=== PATIENT | female | born 1970 | race Hispanic/Latino ===

== ENCOUNTER 2016-06-12 12:20 | Emergency (ER) | payer SELFPAY ==
[2016-06-12 13:36] VITALS: BP 161/118
[2016-06-12] MEDS ORDERED: NORCO 5/325 PO ONE (14:07)
[2016-06-12] MEDS ORDERED: CLEOCIN IM ONE (14:07)
--- NOTE | 2016-06-12 14:14 | Emergency Department Report ---
<ADDISON KRISHNA - Last Filed: 06/12/16 14:56> ED ENT HPI - General Chief complaint: Dental/Oral Stated complaint: ABCESS Time Seen by Provider: 06/12/16 13:59 Source: patient Mode of arrival: Ambulatory Limitations: No Limitations - History of Present Illness MD complaint: tooth pain -: days(s) (1) Location: other (right side of face) Severity: moderate Quality: sharp Consistency: constant Improves with: none Worsens with: other (palpation) Context- Dental: history of dental caries, poor dental care Associated Symptoms: gum swelling, toothache. denies: fever, cough, pain with swallowing, sore throat, tinnitus, hearing loss, discharge from ear, rhinorrhea - Related Data Previous Rx's Medication Instructions Recorded Last Taken Type Acetaminophen/Codeine [Tylenol 1 tab PO Q4HR PRN #30 tablet 06/12/16 Unknown Rx /Codeine # 3 tab] Amoxicillin 1,000 mg PO BID #40 capsule 06/12/16 Unknown Rx predniSONE [Deltasone] 40 mg PO QDAY 5 Days 06/12/16 Unknown Rx Allergies Allergy/AdvReac Type Severity Reaction Status Date / Time No Known Allergies Allergy Unverified 06/12/16 13:25 ED Dental HPI - General Chief complaint: Dental/Oral Stated complaint: ABCESS Time Seen by Provider: 06/12/16 13:59 Source: patient Mode of arrival: Ambulatory Limitations: No Limitations - Related Data Previous Rx's Medication Instructions Recorded Last Taken Type Acetaminophen/Codeine [Tylenol 1 tab PO Q4HR PRN #30 tablet 06/12/16 Unknown Rx /Codeine # 3 tab] Amoxicillin 1,000 mg PO BID #40 capsule 06/12/16 Unknown Rx predniSONE [Deltasone] 40 mg PO QDAY 5 Days 06/12/16 Unknown Rx Allergies Allergy/AdvReac Type Severity Reaction Status Date / Time No Known Allergies Allergy Unverified 06/12/16 13:25 ED Review of Systems ROS: Stated complaint: ABCESS Other details as noted in HPI Constitutional: denies: chills, fever Eyes: denies: eye pain, eye discharge, vision change ENT: dental pain, congestion. denies: ear pain, throat pain Respiratory: denies: cough, shortness of breath, wheezing Cardiovascular: denies: chest pain, palpitations Endocrine: no symptoms reported Gastrointestinal: denies: abdominal pain, nausea, diarrhea Genitourinary: denies: urgency, dysuria, discharge Musculoskeletal: denies: back pain, joint swelling, arthralgia Skin: denies: rash, lesions Neurological: denies: headache, weakness, paresthesias Psychiatric: denies: anxiety, depression Hematological/Lymphatic: denies: easy bleeding, easy bruising ED Past Medical Hx - Past Medical History Previous Medical History?: No - Surgical History Additional Surgical History: Back, elbow, knee, hysterectomy - Social History Smoking Status: Never Smoker Substance Use Type: None - Medications Home Medications: Home Medications Medication Instructions Recorded Confirmed Last Taken Type Acetaminophen/Codeine [Tylenol 1 tab PO Q4HR PRN #30 tablet 06/12/16 Unknown Rx /Codeine # 3 tab] Amoxicillin 1,000 mg PO BID #40 capsule 06/12/16 Unknown Rx predniSONE [Deltasone] 40 mg PO QDAY 5 Days 06/12/16 Unknown Rx ED Physical Exam - General Limitations: No Limitations General appearance: alert, in no apparent distress, anxious - Head Head exam: Present: atraumatic, normocephalic - Eye Eye exam: Present: normal appearance, PERRL, EOMI. Absent: conjunctival injection, periorbital swelling, periorbital tenderness - ENT ENT exam: Present: mucous membranes moist, TM's normal bilaterally, normal external ear exam, other (right maxillary tenderness and swelling) - Expanded ENT Exam Expanded Mouth exam: Present: tongue normal. Absent: drooling Teeth exam: Present: dental caries, other (diffuse dental decay, no obvious incisable abscess noted) Throat exam: Positive: normal inspection - Neck Neck exam: Present: normal inspection, full ROM. Absent: tenderness, lymphadenopathy - Respiratory Respiratory exam: Present: normal lung sounds bilaterally. Absent: respiratory distress - Cardiovascular Cardiovascular Exam: Present: regular rate, normal rhythm. Absent: systolic murmur, diastolic murmur, rubs, gallop - GI/Abdominal GI/Abdominal exam: Present: soft, normal bowel sounds. Absent: tenderness - Extremities Exam Extremities exam: Present: normal inspection - Back Exam Back exam: Present: normal inspection - Neurological Exam Neurological exam: Present: alert, oriented X3 - Psychiatric Psychiatric exam: Present: normal affect, normal mood, anxious - Skin Skin exam: Present: warm, dry, intact, normal color. Absent: rash ED Course Vital Signs 06/12/16 13:26 Temperature 98.1 F Pulse Rate 87 Respiratory 20 Rate Blood Pressure 161/118 O2 Sat by Pulse 99 Oximetry ED Medical Decision Making - Medical Decision Making patient is non-toxic and hemodynamically stable. She has obvious facial cellulitis most likely due to poor dental care. She was given IM Cleocin in ER today and will continue Abx on outpatient with dental follow-up. Critical care attestation.: If time is entered above; I have spent that time in minutes in the direct care of this critically ill patient, excluding procedure time. ED Disposition Disposition: DISCHARGED TO HOME OR SELFCARE Is pt being admited?: No Does the pt Need Aspirin: No Condition: Good Instructions: Dental Abscess (ED), Cellulitis (ED) Prescriptions: Acetaminophen/Codeine [Tylenol /Codeine # 3 tab] 1 tab PO Q4HR PRN #30 tablet PRN Reason: Pain Amoxicillin 1,000 mg PO BID #40 capsule predniSONE [Deltasone] 40 mg PO QDAY 5 Days Referrals: [facility] [Outside] - 3-5 Days Time of Disposition: 14:58 <BRANDEN KRAMER - Last Filed: 06/12/16 15:44> ED Course - Reevaluation(s) Reevaluation #1: PA instructed to discontinue steroids. Patient needs close follow-up. Patient will be informed. Patient also informed concerning hypertension. Close primary care follow-up is required. If they have not left he will be given a prescription for an antihypertensive agent. 06/12/16 15:42 06/12/16 15:43
[2016-06-12] MEDS ORDERED: MORPHINE IM ONE (15:03)
== END 2016-06-12 16:08 | disposition home or self-care (01) ==
LOC: ED 12:20
DX: K02.9 Dental caries, unspecified (principal); Z90.710 Acquired absence of both cervix and uterus
CPT/HCPCS: 96372; 99282; J2270

== ENCOUNTER 2016-06-12 17:05 | Emergency (ER) | payer SELFPAY ==
[2016-06-12 17:15] VITALS: BP 107/76
--- NOTE | 2016-06-12 18:46 | Emergency Department Report ---
Chief Complaint: Weakness Stated Complaint: WEAKNESS Time Seen by Provider: 06/12/16 18:40 - HPI History of Present Illness: patient checks back in with complaints of feeling light headed and weak. Patient was just seen in the ER and discharged after getting Clindamyacin IM injection as well as Morphine injection. She was waiting in waiting room for her ride when she got light headed. - ROS Review of Systems: Weak, Light headed, pale - Exam Vital Signs: Vital Signs 06/12/16 17:09 Temperature 98.7 F Pulse Rate 90 Respiratory 17 Rate Blood Pressure 107/76 O2 Sat by Pulse 96 Oximetry Physical Exam: patient initially appears pale and was given juice and crackers as she has not eaten much of anything due to teeth pain today. After sitting up and eating and drinking, she began to feel better and her color improved MSE screening note: Focused history and physical exam performed. Patient was observed in the ER and symtptomatic improvements with oral fluids and crackers. Patient wants to go home and go to bed. ED Disposition for MSE Condition: Stable
--- NOTE | 2016-06-16 18:56 | ED Elopement Review ---
ED Pt Elopement review - Call Back decision Pt Call Back Decision: Pt to F/U with PMD
== END 2016-06-12 19:00 | disposition left against medical advice (07) ==
LOC: ED 17:05
DX: R53.1 Weakness (principal); R42 Dizziness and giddiness; Z53.21 Procedure and treatment not carried out due to patient leaving prior to being seen by health care provider

== ENCOUNTER 2016-06-19 18:57 | Inpatient (IN) | payer SELFPAY ==
[2016-06-19 19:39] LABS: Basophils % (Auto) 0.3 % (0.0-1.8); Eosinophils % (Auto) 3.7 % (0.0-4.3); Hemoglobin 11.5 gm/dl (10.1-14.3); Mean Corpuscular HGB Conc 34 % (30-34); Mean Corpuscular Hemoglobin 28 pg (28-32); Mean Corpuscular Volume 84 fl (79-97); Platelet Count 416 K/mm3 (140-440); Red Blood Count 4.05 M/mm3 (3.65-5.03); Red Cell Distribution Width 14.1 % (13.2-15.2); White Blood Count 7.7 K/mm3 (4.5-11.0)
[2016-06-19 19:48] LABS: Anion Gap 20 mmol/L; Blood Urea Nitrogen 7 mg/dL (7-17); Calcium 9.2 mg/dL (8.4-10.2); Carbon Dioxide 22 mmol/L (22-30); Chloride 103.1 mmol/L (98-107); Glucose 98 mg/dL (65-100); Potassium 3.7 mmol/L (3.6-5.0); Sodium 141 mmol/L (137-145)
[2016-06-19] MEDS ORDERED: MORPHINE IV ONE (23:52)
[2016-06-19] MEDS ORDERED: ZOFRAN IV ONE (23:52)
--- NOTE | 2016-06-20 00:02 | Emergency Department Report ---
HPI - General Chief Complaint: Chest Pain Time Seen by Provider: 06/19/16 23:44 - HPI HPI: Room 10 The patient is a 46-year-old female presenting with a chief complaint of headache and chest pain. The patient states at approximate 16:00 today while at rest she developed left-sided chest pain associated with shortness of breath diaphoresis and nausea without vomiting. Patient states the pain has been dull and constant in nature. The patient says she is also had a headache for the past 2 days but worsened this morning. Patient currently gives her pain a score of 10/10. Patient states she's never had a stress test or cardiac catheterization has a strong family history of coronary artery disease Location: Chest, head Duration: [see above] Quality: Dull Severity:10/10 Modifying factors: [see above] Context: [see above] Mode of transportation: [not driving] ED Past Medical Hx - Surgical History Additional Surgical History: Back, elbow, knee, hysterectomy. back surg 3times - Family History Family history: CAD/NH - Social History Smoking Status: Never Smoker Substance Use Type: None (denies illicit drug use) - Medications Home Medications: Home Medications Medication Instructions Recorded Confirmed Last Taken Type HYDROcodone/APAP 5-325 [[place] 1 each PO Q4HR PRN #18 tablet 06/12/16 Unknown Rx 5/325] Penicillin Vk [Veetids TAB] 500 mg PO QID #40 tablet 06/12/16 Unknown Rx ED Review of Systems ROS: Stated complaint: CHEST PAIN /HEADACHE/BACK PAIN Other details as noted in HPI Comment: All other systems reviewed and negative Constitutional: diaphoresis Eyes: denies: eye pain, eye discharge, vision change ENT: denies: ear pain, throat pain Respiratory: shortness of breath Cardiovascular: chest pain Endocrine: no symptoms reported Gastrointestinal: nausea. denies: vomiting Genitourinary: denies: urgency, dysuria, discharge Musculoskeletal: denies: back pain, joint swelling, arthralgia Skin: denies: rash, lesions Neurological: headache. denies: weakness, paresthesias Psychiatric: denies: anxiety, depression Hematological/Lymphatic: denies: easy bleeding, easy bruising Physical Exam - Physical Exam Vital Signs: Vital Signs 06/19/16 06/19/16 19:09 23:20 Temperature 98.3 F Pulse Rate 91 H 87 Respiratory 18 18 Rate Blood Pressure 139/101 Blood Pressure 137/78 [Left] O2 Sat by Pulse 100 96 Oximetry Physical Exam: GENERAL: The patient is well-developed well-nourished female lying on stretcher appearing to be in moderate discomfort. [] HEENT: Normocephalic. Atraumatic. Extraocular motions are intact. Patient has moist mucous membranes. NECK: Supple. No meningitic signs are noted. Trachea midline CHEST/LUNGS: Clear to auscultation. There is no respiratory distress noted. HEART/CARDIOVASCULAR: Regular. There is no tachycardia. There is no gallop rub or murmur. ABDOMEN: Abdomen is soft, nontender. Patient has normal bowel sounds. There is no abdominal distention. SKIN: There is no rash. There is no edema. There is no diaphoresis. NEURO: The patient is awake, alert, and oriented. The patient is cooperative. The patient has no focal neurologic deficits. The patient has normal speech. Cranial nerves II through XII grossly intact, no drift MUSCULOSKELETAL: There is no evidence of acute injury. ED Course Vital Signs 06/19/16 06/19/16 19:09 23:20 Temperature 98.3 F Pulse Rate 91 H 87 Respiratory 18 18 Rate Blood Pressure 139/101 Blood Pressure 137/78 [Left] O2 Sat by Pulse 100 96 Oximetry - Reevaluation(s) Reevaluation #1: 06/20/16 02:25 Left external jugular IV placed by myself. 20-gauge ED Medical Decision Making - Lab Data Result diagrams: 06/19/16 19:18 06/19/16 19:18 Laboratory Tests 06/19/16 06/19/16 06/19/16 19:18 19:18 22:06 WBC 7.7 RBC 4.05 Hgb 11.5 Hct 34.0 MCV 84 MCH 28 MCHC 34 RDW 14.1 Plt Count 416 Lymph % (Auto) 34.6 [place] % (Auto) 5.5 Eos % (Auto) 3.7 Baso % (Auto) 0.3 Lymph # 2.7 [place] # 0.4 Eos # 0.3 Baso # 0.0 Seg Neutrophils % 55.9 Seg Neutrophils # 4.3 Sodium 141 Potassium 3.7 Chloride 103.1 Carbon Dioxide 22 Anion Gap 20 BUN 7 Creatinine 0.5 L Estimated GFR > 60 BUN/Creatinine Ratio 14.00 Glucose 98 Calcium 9.2 Troponin T < 0.010 < 0.010 - EKG Data -: EKG Interpreted by Me EKG shows normal: sinus rhythm Rate: normal - EKG Data When compared to previous EKG there are: previous EKG unavailable Interpretation: other (no ischemic changes seen) - Radiology Data Radiology results: report reviewed (CT head), image reviewed (CT head, CT chest) CT head (read by radiologist)-negative CT scan of head. No acute intracranial findings CT chest read pending - Differential Diagnosis ACS, pericarditis, aortic dissection, ICH, migraine Critical care attestation.: If time is entered above; I have spent that time in minutes in the direct care of this critically ill patient, excluding procedure time. ED Disposition Clinical Impression: Chest pain, Headache Disposition: OP ADMITTED IP TO THIS HOSP Is pt being admited?: Yes Does the pt Need Aspirin: Yes Condition: Fair Instructions: Chest Pain (ED) Referrals: PRIMARY CARE, [Primary Care Provider] - 3-5 Days Time of Disposition: 04:53 (case discussed with Dr. Middleton. CT chest read pending )
[2016-06-20] MEDS ORDERED: NACL ONE (00:12)
--- NOTE | 2016-06-20 02:05 | Cat Scan Report ---
FINAL REPORT EXAM: CT HEAD/BRAIN WO CON HISTORY: headache TECHNIQUE: Standard unenhanced CT of the head at 5.0 millimeter axial increments. PRIORS: None. FINDINGS: The ventricular system is normal in size and configuration. There is no evidence for parenchymal volume loss. There is no evidence for mass lesion, mass effect, midline shift, acute intracranial hemorrhage, or acute ischemia/ infarction. No evidence for acute skull fracture is seen. No abnormality in the overlying scalp soft tissues is seen. Visualized paranasal sinuses are clear. IMPRESSION: Negative CT of the head. No acute intracranial process noted.
[2016-06-20] MEDS ORDERED: MORPHINE IV ONE (02:24)
[2016-06-20] MEDS ORDERED: FIORICET PO ONE (02:25)
[2016-06-20] MEDS ORDERED: ASPIRIN PO ONE (04:54)
--- NOTE | 2016-06-20 05:21 | Cat Scan Report ---
FINAL REPORT EXAM: CT ANGIO CHEST HISTORY: chest pain radiating to the back TECHNIQUE: CT angiography of the chest was performed. 100 cc Omnipaque 350 IV was administered. Coronal and sagittal reformatted images were obtained. PRIORS: None. FINDINGS: There is no aortic dissection seen. There are no filling defects seen within the pulmonary arterial circulation to suggest pulmonary embolism. There is no significant mediastinal or hilar mass seen. There is some dependent atelectasis at the lung bases. The lungs are clear. There is no pneumothorax seen. There are no pleural effusions seen. IMPRESSION: There is no pulmonary embolism or aortic dissection seen.
--- NOTE | 2016-06-20 05:53 | Event Note ---
Date: 06/20/16 See /p in reports Chest pain r/o PA protocol Headache HTN
[2016-06-20] MEDS ORDERED: ZOFRAN IV PRN ×2 (05:55→06:01)
[2016-06-20] MEDS: MORPHINE IV PRN ×4 (05:58→21:34)
[2016-06-20] MEDS ORDERED: PERCOCET 5/325 PO PRN (06:01)
[2016-06-20] MEDS ORDERED: DULCOLAX PR PRN (06:01)
[2016-06-20] MEDS ORDERED: MILK OF MAGNESIA PO PRN (06:01)
[2016-06-20] MEDS ORDERED: SODIUM CHLORIDE FLUSH SYRINGE 10 ML IV PRN (06:03)
[2016-06-20] MEDS ORDERED: FIORICET PO PRN (06:21)
[2016-06-20 07:28] LABS: Creatine Kinase 29 units/L (30-135)
[2016-06-20 07:34] LABS: Creatine Kinase MB < 1.0 ng/mL (0.0-4.0)
--- NOTE | 2016-06-20 08:12 | History and Physical Report ---
CHIEF COMPLAINT: Left-sided chest pain. HISTORY OF PRESENT ILLNESS: A 46-year-old female with no significant past medical history comes in for severe headache of 1 day duration and left-sided chest pain radiating to the back. The patient developed chest pain around 16 hours yesterday while at rest. It is associated with some shortness of breath, diaphoresis, and also nausea. No vomiting. The patient also developed headache, which is 10/10. The patient was recently in the Emergency Room for toothache one week ago. She states the pain is about 10/10 and never had a stress test or cardiac catheterization , but had a strong family history of coronary artery disease. No exacerbating factor. No relieving factors. Chest pain is sharp in nature. PAST MEDICAL HISTORY: No hypertension. No diabetes. PAST SURGICAL HISTORY: Back surgery 3 times, hysterectomy, knee surgery, elbow surgery, and back surgery. FAMILY HISTORY: Significant for coronary artery disease. SOCIAL HISTORY: Does not smoke. No alcohol. No recreational drugs. REVIEW OF SYSTEMS: CONSTITUTIONAL: No weight loss or weight gain. No fever. No chills. HEENT: No sore throat. No postnasal drip. CARDIOVASCULAR: As mentioned in the history of present illness sharp left-sided chest pain radiating into the back associated with nausea, diaphoresis, and shortness of breath. RESPIRATORY: No cough. No wheezing. GI: No nausea present. No vomiting. No abdominal pain. GENITOURINARY SYSTEM: No dysuria. No flank pain. MUSCULOSKELETAL SYSTEM: No joint pains and some low back pain. SKIN: No rashes. NEUROLOGICAL: No headaches present. No syncope. No seizures. PSYCHIATRIC: Denies anxiety or depression. No homicidal or suicidal tendencies. HEMATOLOGIC AND LYMPHATIC SYSTEMS: Denies easy bleeding or easy bruising. A 14-point review of systems is done. PHYSICAL EXAMINATION: GENERAL: Middle-aged female in slight distress secondary to headache. VITAL SIGNS: Temperature 98.3, pulse is 91, respiratory rate is 18, blood pressure is 139/101 and repeat blood pressure is 137/78, and sats 100%. HEENT: Unremarkable. Pupils equal and reactive. NECK: Supple. No lymphadenopathy. No thyromegaly. No carotid bruit. LUNGS: Clear to auscultation and percussion. No respiratory distress. CARDIOVASCULAR: S1 and S2 heard. No gallop. No murmur. No rub. Apical impulse in left fifth intercostal space and midclavicular line. ABDOMEN: Soft and benign. No hepatosplenomegaly. No guarding. No rigidity. Hernial orifices are normal. SKIN: No rashes. CENTRAL NERVOUS SYSTEM: Normal. No focal deficits. Cranial nerves are intact. MUSCULOSKELETAL SYSTEMS: No evidence of acute injury. DIAGNOSTIC DATA: EKG shows normal sinus rhythm, possible left atrial enlargement, and right ventricular conduction delay. No acute ST-T wave changes. CT angiogram was negative. LABORATORY DATA: Significant for white count of 7700, hemoglobin of 11.5, hematocrit 34.0, and platelet count 416,000. Electrolytes are normal. Cardiac enzymes are negative. ASSESSMENT AND PLAN: 1. Chest pain and rule out myocardial infarction. Serial cardiac enzymes and Lexiscan in the morning today if possible. The patient was admitted on 5 a.m. 2. Hypertension, borderline. One set of blood pressure reading was high and one set was normal. We will continue to monitor blood pressure and add antihypertensives if necessary. Headaches symptomatic treatment. No bleed. 3. Deep venous thrombosis prophylaxis. Lovenox 40 mg subcutaneous daily. JOB# [id number] VSM/NTS
[2016-06-20] MEDS: TYLENOL PO PRN (08:31)
[2016-06-20] MEDS ORDERED: LEXISCAN IV ONE (09:08)
--- NOTE | 2016-06-20 09:22 | Admit Criteria Form ---
Admission Criteria Documentation: CARDIOLOGY GRG Clinical Indications for Admission to Inpatient Care ( Place 'X' for any and all applicable criteria): Hospital admission is needed for appropriate care of the patient because of ANY ONE of the following (1): [ ] I. Hemodynamic instability as indicated by ALL of the following (1)(2)(3) (4)(5) [ ]a) Vital signs or other findings not as expected for chronic patient condition or baseline [ ]b) Instability indicated by ANY ONE of the following: [ ]i) Hypotension [ ]ii) Symptomatic Tachycardia unresponsive to treatment ( e.g., analgesia, fluids, sedation as indicated) [ ]iii) Inadequate perfusion indicated by ANY ONE of the following: [ ] 1) Lactic acidosis (> 2 mmol/L) [ ] 2) New abnormal capillary refill (> 3 seconds) [ ] 3) Reduced urine output [ ] 4) New altered mental status [ ]iv) Orthostatic vital sign changes unresponsive to treatment (e.g., fluids) [ ]v) IV inotropic or vasopressor medication required to maintain adequate blood pressure or perfusion [ ] II. Severe heart failure as indicated by ANY ONE of the following(17)(18) [ ]a) Respiratory distress [ ]b) Hypotension [ ]c) Anasarca (refractory to outpatient therapy) [ ]d) Cardiac arrhythmias of immediate concern [ ]e) Myocardial ischemia [ ] III. Cardiac arrhythmias or findings of immediate concern indicated by ANY ONE of the following (19)(20): [ ] a) Heart rhythms that are inherently dangerous or unstable indicated by ANY ONE of the following (21)(22)(23): [ ] i) Resuscitated ventricular fibrillation or cardiac arrest [ ] ii) Ventricular escape rhythm [ ] iii) Sustained ventricular tachycardia (30 seconds or more of ventricular rhythm at greater than 100 beats per minute) [ ] iv) Nonsustained ventricular tachycardia and ANY ONE of the following: [ ] 1) Suspected cardiac ischemia as cause or consequence of ventricular tachycardia [ ] 2) In setting of acute myocarditis [ ] b) Unstable cardiac conduction defects indicated by ANY ONE of the following(23)(24)(25) [ ] i) Type II second-degree atrioventricular block [ ]ii) Third-degree atrioventricular block [ ]iii) New-onset left bundle branch block with suspected myocardial ischemia [ ]c) Any heart rhythm and ANY ONE of the following (21)(22)(26)(27) (28) [ ] i) Continuous long-term ECG monitoring needed (e.g., initiation of drug requiring monitoring for more than 24 hours) [ ] ii) Patient has automatic implanted cardioverter defibrillator that is repeatedly firing, malfunctioning, or in need of immediate adjustment of settings beyond the scope of ambulatory or observation care [ ]d) Heart rhythms of concern due to ANY ONE of the following: [ ] i) Hypotension [ ] ii) Respiratory distress [ ] iii) Association with other significant symptoms (e.g., bradycardia with syncope or ongoing dizziness, supraventricular tachycardia with chest pain (14)(15)(17) [ ] IV. Monitoring for cardiac contusion beyond the scope of observation care needed [A](30)(31)(32) [ ] V. Surgical or device complication (e.g., valve replacement complication , pacemaker dysfunction) (35)(41)(44)(45)(46) [ ] . Inpatient palliative care needed. [B](49) Also use Inpatient Palliative Care Criteria [ ] VII. Nonbacterial thrombotic (marantic) endocarditis (36)(43)(47)(48) [X] VIII. Cardiology condition, symptom, or finding for which emergency and observation care has failed or are not considered appropriate. [ ] IX. Acute valvular disease requiring inpatient as indicated by ANY ONE of the following (41) [ ]a) Acute valvular regurgitation (42) [ ]b) Noninfectious valvulitis (43) [ ]c) Obstructive valve thrombosis [ ]d) Paravalvular leak [ ]e) Other significant valvular disorder remaining after emergency or observation level of care (as appropriate) [ ]X. Pericardial disease requiring inpatient treatment as indicated by ANY ONE of the following (33)(34)(35)(36)(37) [ ]a) Suspected tamponade (38)(39)(40) [ ]b) Hemopericardium [ ]c) Other significant pericardial disorder remaining after emergency or observation level of care (as appropriate) [ ] XI. Cardiac ischemia beyond scope of emergency and observation care. [ ] XII. Hypertension requiring inpatient treatment as indicated by ANY ONE of the following (6)(7)(8) [ ]a) SBP greater than 220 mm Hg or DBP greater than 120 mmHg despite treatment [ ]b) SBP greater than 140 mm Hg or DBP greater than 100 mm Hg with evidence of acute end organ damage as indicated by ANY ONE of the following [ ] i) Altered mental status [ ] ii) Acute renal failure as indicated by new onset of ANY ONE of the following (9)(10)(11)(12)(13) [ ]1) 3-fold rise in serum creatinine from baseline [ ]2) Serum creatinine greater than 4 mg/dL ( 354 micromoles/L) with acute rise greater than 0.5 mg/dL (44.2 micromoles/L) [ ]3) Reduction of more than 75% in estimated glomerular filtration rate from baseline [ ]4) Estimated glomerular filtration rate less than 35 mL/min/1.73m2 (0.59 mL/sec/1.73m2) in child up to 18 years of age [ ]5) Cessation of urine output indicated by ALL of the following [ ]A. Adequate volume status [ ]B. Inadequate urine output as indicated by ANY ONE of the following [ ]a. Urine output less than 0.3 mL/kg/hr for 24 hours [ ]b. Anuria (urine output less than 0.1 mL/kg/hr) for 12 hours [ ] iii) Aortic dissection [ ] iv) Myocardial Ischemia [ ] v) Left ventricular heart failure [ ]vi) Retinal Hemorrhage [ ]vii) Other significant finding [ ]c) Hypertension in child requiring inpatient treatment as indicated by ALL of the following(14)(15)(16) [ ] i) Outpatient treatment not effective, not available, or not appropriate [ ]ii) SBP or DBP greater than 95th percentile for age [ ]iii) Evidence of acute end organ damage as indicated by ANY ONE of the following [ ]1) Altered mental status [ ]2) Acute renal failure as indicated by new onset of ANY ONE of the following(9)(10)(11)(12)(13) [ ]A. 3-fold rise in serum creatinine from baseline [ ]B. Serum creatinine greater than 4 mg/dL (354 micromoles/L) with acute rise greater than 0.5 mg/dL (44.2 micromoles/L) [ ]C. Reduction of more than 75% in estimated glomerular filtration rate from baseline [ ]D. Estimated glomerular filtration rate less than 35 mL/min/1.73m2 (0.59 mL/sec/1.73m2) in child up to 18 years of age [ ]E. Cessation of urine output indicated by ALL of the following [ ]a. Adequate volume status [ ]b. Inadequate urine output as indicated by ANY ONE of the following [ ]i) Urine output less than 0.3 mL/kg/hr for 24 hours [ ]ii) Anuria ( urine output less than 0.1 mL/kg/hr) for 12 hours [ ]3) Severe headache [ ]4) Visual disturbance [ ]5) Retinal hemorrhage [ ]6) Other significant finding [ ]XIII. Complications of transplanted heart indicated by ANY ONE of the following(61): [ ]a) Acute graft rejection requiring inpatient management (eg, intravenous immunosuppression)(62)(63) [ ]b) Acute graft heart failure indicated by ANY ONE of the following(64): [ ]i) Hemodynamic instability [ ]ii) Cardiac arrhythmias of immediate concern [ ]iii) Pulmonary edema that is very severe (eg, mechanical ventilation needed, imminent or likely, need for 100% oxygen to keep oxygen saturation above 90%) [ ]iv) Pulmonary edema that is persistent as indicated by ALL of the following: [ ]1) New need for oxygen therapy to keep oxygen saturation above 90% (or increased FiO2 need from baseline) [ ]2) Has not improved sufficiently with emergency department or observation care IV diuretics or other heart failure treatments[E] [ ]v) Altered mental status that is severe or persistent [ ]vi) Increased creatinine (new on laboratory test) with reduction of more than 50% in estimated glomerular filtration rate from baseline [ ]vii) Progressively (ongoing) rising creatinine (known from past laboratory test) with reduction of more than 25% in estimated glomerular filtration rate from baseline [ ]viii) Acute renal failure [ ]ix) Acute peripheral ischemia (eg, examination shows pulseless, cool, mottled, or cyanotic extremity) [ ]x) Pulmonary artery catheter monitoring needed [ ]xi) Other sign or symptom of heart failure requiring inpatient treatment (ie, too severe or not responsive to outpatient and observation care treatment) [ ]c) Infection requiring inpatient management (eg, Hemodynamic instability, need for intravenous antimicrobial treatment)(66)(67)(68)(69)(70) [ ]d) Cardiac allograft vasculopathy requiring inpatient management ( eg evidence of cardiac ischemia)(71) [ ]e) Other complication of transplanted heart (eg, stroke, severe pulmonary hypertension, severe valvular dysfunction) requiring inpatient management(72) The original [facility] [employer] content created by [employer] has been revised. The portions of the content which have been revised are identified through the use of italic text or in bold, and [facility] has neither reviewed nor approved the modified material. All other unmodified content is copyright [facility] [employer]. Please see references footnoted in the original [facility] [employer] edition 2016 Admission Criteria Met: Yes
--- NOTE | 2016-06-20 09:53 | Discharge Summary ---
Providers - Providers Date of Admission: 06/20/16 04:54 Attending physician: CAIO HERNANDEZ MD 06/20/16 Consult to Cardiac Rehabilitation [CONS] Routine Reason For Exam: Phase I Primary care physician: MUSTAPHA VILLALPANDO MD Hospitalization Condition: Fair Hospital course: 46-year-old woman who presented with left-sided chest pain and headaches. ACS was rule out by negative cardiac enzymes, She was seen in the emergency department she went on to have a CT scan to come of her chest that was negative for pulmonary embolism, she also had a CT of her head that was within normal limits. She was found to have mild to moderately elevated blood pressures, she went on to have a nuclear stress test and results were . She was put on appropriate medications for hypertension and advised to take over-the- counter medicines such as Tylenol or NSAIDs as needed for headache. Discharge diagnoses 1. Chest pain Due to costochondritis 2. Accelerated hypertension 3. Headaches Disposition: DISCHARGED TO HOME OR SELFCARE Time spent for discharge: 35 minutes Core Measure Documentation - Palliative Care Palliative Care/ Comfort Measures: Not Applicable - Core Measures Any of the following diagnoses?: none Exam - Constitutional Vitals: Temp Pulse Resp BP Pulse Ox 98.3 F 74 18 147/88 97 06/19/16 19:09 06/20/16 05:20 06/20/16 03:19 06/20/16 03:19 06/20/16 03:19 General appearance: Present: no acute distress, well-nourished - EENT Eyes: Present: PERRL ENT: hearing intact, clear oral mucosa - Neck Neck: Present: supple, normal ROM - Respiratory Respiratory effort: normal Respiratory: bilateral: CTA - Cardiovascular Heart Sounds: Present: S1 & S2. Absent: rub, click - Extremities Extremities: pulses symmetrical, No edema Peripheral Pulses: within normal limits - Abdominal General gastrointestinal: Present: soft, non-tender, non-distended, normal bowel sounds Female genitourinary: Present: normal - Integumentary Integumentary: Present: clear, warm, dry - Musculoskeletal Musculoskeletal: gait normal, strength equal bilaterally - Psychiatric Psychiatric: appropriate mood/affect, intact judgment & insight - Neurologic Neurologic: CNII-XII intact, moves all extremities Plan Follow up with: PRIMARY CARE, [Primary Care Provider] - 3-5 Days Prescriptions: Aspirin EC [Aspirin Enteric Coated TAB] 81 mg PO QDAY #30 tablet.[address] Bryant/Acetnicole/Caff 50-325-40 [Fioricet] 1 tab PO Q4H PRN #30 tablet PRN Reason: Headache Hydrochlorothiazide [Hctz] 12.5 mg PO QDAY #30 capsule
[2016-06-20 11:10] LABS: Creatine Kinase 31 units/L (30-135)
[2016-06-20 11:11] LABS: Creatine Kinase MB < 1.0 ng/mL (0.0-4.0)
[2016-06-20] MEDS ORDERED: MOTRIN PO PRN (13:00)
[2016-06-21] MEDS: TYLENOL PO PRN ×2 (00:31→05:28)
[2016-06-21] MEDS: MORPHINE IV PRN (00:32)
[2016-06-21] MEDS ORDERED: LEXISCAN IV ONE (08:23)
--- NOTE | 2016-06-21 08:32 | Discharge Summary ---
Providers - Providers Date of Admission: 06/20/16 04:54 Date of discharge: 06/21/16 Attending physician: GAVIN HELTON 06/20/16 Consult to Cardiac Rehabilitation [CONS] Routine Reason For Exam: Phase I Primary care physician: LABOR/EXCAVATOR Hospitalization Condition: Fair Hospital course: This is a 46-year-old female with a history of depression presented with retrosternal chest pain. She was monitored with serial cardiac enzymes and EKG. She was evaluated by stress test which was negative. She was discharged home with a trial of PPI therapy for possible GERD. Discharge diagnosis and management: Chest pain, stress test was negative - likely due to GERD - d/c with PPI HTN, benign - cont to control with diet and exercise History of depression - Continue home meds and follow-up with psychiatric outpatient Headache likely tension headache - CT head was unremarkable -We'll control with fioricet Disposition: DISCHARGED TO HOME OR SELFCARE Time spent for discharge: 32 minutes Core Measure Documentation - Palliative Care Palliative Care/ Comfort Measures: Not Applicable - Core Measures Any of the following diagnoses?: none Exam - Constitutional Vitals: Temp Pulse Resp BP Pulse Ox 97.7 F 64 18 110/60 97 06/21/16 07:03 06/21/16 07:03 06/21/16 05:28 06/21/16 07:03 06/21/16 07:03 General appearance: Present: no acute distress, well-nourished - EENT Eyes: Present: PERRL ENT: hearing intact, clear oral mucosa - Neck Neck: Present: supple, normal ROM - Respiratory Respiratory effort: normal Respiratory: bilateral: CTA - Cardiovascular Heart Sounds: Present: S1 & S2. Absent: rub, click - Extremities Extremities: pulses symmetrical, No edema Peripheral Pulses: within normal limits - Abdominal General gastrointestinal: Present: soft, non-tender, non-distended, normal bowel sounds - Integumentary Integumentary: Present: clear, warm, dry - Musculoskeletal Musculoskeletal: gait normal, strength equal bilaterally - Psychiatric Psychiatric: appropriate mood/affect, intact judgment & insight - Neurologic Neurologic: CNII-XII intact, moves all extremities Plan Activity: advance as tolerated Weight Bearing Status: Weight Bear as Tolerated Diet: low fat, low salt Follow up with: [facility] [Provider Group] - 7 Days PRIMARY CARE, [Primary Care Provider] - 3-5 Days Prescriptions: Aspirin EC [Aspirin Enteric Coated TAB] 81 mg PO QDAY #30 tablet.[address] Bryant/Acetamin/Caff 50-325-40 [Fioricet] 1 tab PO Q4H PRN #30 tablet PRN Reason: Headache Pantoprazole [Protonix TAB] 20 mg PO QDAY #30 tablet.
[2016-06-21] MEDS ORDERED: FIORICET PO PRN (12:00)
[2016-06-21] MEDS ORDERED: FLUARIX QUAD 2016-2017(36 MOS+) IM ONE (12:00)
[2016-06-21 13:01] VITALS: BP 131/87
--- NOTE | 2016-06-22 03:28 | Treadmill Report ---
THALLIUM MYOVIEW Resting images revealed homogeneous radioisotope activity. On Myoview after dose of Lexiscan, again there was homogeneous radioisotope activity noted. Ejection fraction was normal at 69%. There is no transient ischemic dilatation. IMPRESSION: Normal perfusion test. JOB# [id number] NELLIE/JACKIE
== END 2016-06-21 17:10 | disposition home or self-care (01) | DRG 392 ==
LOC: ED 18:57 → 4A 06-20 04:54
PROVIDERS: ADMIT Internal Medicine; ATTEND Internal Medicine
PROC: 4A02XM4 Measurement of Cardiac Total Activity, External Approach (ICD-10-PCS; principal; 2016-06-20)
DX: K21.9 Gastro-esophageal reflux disease without esophagitis (principal); R07.9 Chest pain, unspecified; I10 Essential (primary) hypertension; F32.9 Major depressive disorder, single episode, unspecified; G44.209 Tension-type headache, unspecified, not intractable; Z98.890 Other specified postprocedural states; Z90.710 Acquired absence of both cervix and uterus; Z82.49 Family history of ischemic heart disease and other diseases of the circulatory system
CPT/HCPCS: 36415; 70450; 71275; 78452; 80048; 82550; 82553; 84484; 85025; 90686; 93005; 93010; 93017; 96374; 96375; A9502; J2270; J2405; J2785; Q9967

== ENCOUNTER 2016-09-22 18:38 | Emergency (ER) | payer SELFPAY ==
[2016-09-22 20:16] LABS: Basophils % (Auto) 0.3 % (0.0-1.8); Eosinophils % (Auto) 3.3 % (0.0-4.3); Hematocrit 33.7 % (30.3-42.9); Hemoglobin 11.3 gm/dl (10.1-14.3); Mean Corpuscular HGB Conc 34 % (30-34); Mean Corpuscular Hemoglobin 30 pg (28-32); Mean Corpuscular Volume 90 fl (79-97); Platelet Count 307 K/mm3 (140-440); Red Blood Count 3.73 M/mm3 (3.65-5.03); Red Cell Distribution Width 12.4 % (13.2-15.2)
[2016-09-22 20:26] LABS: Bilirubin,Urine NEG (Negative); Blood,Urine NEG (Negative); Ketones,Urine NEG (Negative); Leukocyte Esterase,Urine NEG (Negative); Nitrite,Urine NEG (Negative); Protein,Urine <15 mg/dL mg/dL (Negative); RBC,Urine < 1.0 /HPF (0.0-6.0); Urobilinogen,Urine < 2.0 mg/dL (<2.0)
[2016-09-22 20:27] LABS: WBC,Urine < 1.0 /HPF (0.0-6.0)
[2016-09-22 20:33] LABS: Anion Gap 17 mmol/L; BUN/Creatinine Ratio 6.66; Blood Urea Nitrogen 4 mg/dL (7-17); Calcium 8.8 mg/dL (8.4-10.2); Carbon Dioxide 27 mmol/L (22-30); Chloride 103.1 mmol/L (98-107); Glucose 82 mg/dL (65-100); Potassium 3.8 mmol/L (3.6-5.0); Sodium 143 mmol/L (137-145)
--- NOTE | 2016-09-22 20:40 | Cat Scan Report ---
FINAL REPORT EXAM: CT CERVICAL SPINE WO CON HISTORY: fall, Bowel control Dizzy issues TECHNIQUE: Standard CT cervical spine obtained at 1.25 millimeter axial increments only. PRIORS: None. FINDINGS: The vertebral bodies are intact. There is no evidence for acute fracture. There is no evidence for paravertebral soft tissue swelling. Alignment is maintained. Extensive facet joint hypertrophic changes present from C3 through C6 bilaterally IMPRESSION: No acute abnormality of the cervical spine. Bilateral facet joint hypertrophic change identified from C3 through C6.
--- NOTE | 2016-09-22 20:46 | Cat Scan Report ---
FINAL REPORT EXAM: CT LUMBAR SPINE WO CON HISTORY: fall, Bowel control Dizzy issues TECHNIQUE: Spiral high-resolution unenhanced 1.25 millimeter axial images were obtained through the lumbar spine. Sagittal and coronal plane are reconstructions were performed. PRIORS: None. FINDINGS: Counting reference: Lumbosacral junction. For the purposes of this report, L4-L5 is considered the level of the iliac crest. Bone marrow/ Fracture: Bilateral pedicle screws and stabilizing bars are identified from L3-S1 with evidence for laminectomy at these levels. There is extensive beam hardening artifact through these levels. There is no evidence for acute or chronic fracture is seen. No evidence of a lytic or blastic process in the visualized spine. Alignment: There is a small anterolisthesis of L5 on S1, grade 1. Disc spaces: Disc spaces are maintained throughout except for L5-S1. Paraspinal soft tissues: The paraspinal soft tissues show no evidence for paravertebral hematoma or soft tissue mass. Sacrum and iliac wings: Visualized portions of the sacrum and iliac wings appear intact without fracture. The presacral soft tissues are normal in appearance. IMPRESSION: 1. No evidence of acute fracture. 2. Postsurgical changes from L3 through S1 3. A small anterolisthesis of L5 on S1.
--- NOTE | 2016-09-22 21:12 | Cat Scan Report ---
FINAL REPORT EXAM: CT THORACIC SPINE WO CON HISTORY: fall, Bowel control Dizzy issues TECHNIQUE: Standard CT thoracic spine obtained at 1.25 millimeter axial increments. Coronal and sagittal reconstruction was also performed. PRIORS: None. FINDINGS: The vertebral bodies are intact. There is no evidence for acute fracture. There is no evidence for paravertebral soft tissue swelling. Alignment is maintained. IMPRESSION: No acute abnormality of the thoracic spine.
[2016-09-23] MEDS ORDERED: NORCO 10/325 PO ONE (00:33)
--- NOTE | 2016-09-23 02:08 | Emergency Department Report ---
ED General Adult HPI - General Chief complaint: Fall Stated complaint: POSS POISONING FROM INSECT FOGGERS Time Seen by Provider: 09/23/16 00:32 Source: patient Mode of arrival: Ambulatory Limitations: No Limitations - History of Present Illness Initial comments: Patient is a 46-year-old female past medical history of back pain who presents with status post fall. Patient states that her back pain is a 7 out of 10 she fell backwards but did not lose consciousness. Patient states that the pain is located in her lower back it does not radiate moving makes the pain worse nothing makes it better. She also states that she is lightheaded. Patient states that she is also concerned of pesticides being in her blood because her let off a "bug bomb." In the living room Severity scale (0 -10): 9 - Related Data Previous Rx's Medication Instructions Recorded Last Taken Type Aspirin EC [Aspirin Enteric Coated 81 mg PO QDAY #30 tablet. 06/20/16 Unknown Rx TAB] Butalb/Acetamin/Caff 50-325-40 1 tab PO Q4H PRN #30 tablet 06/20/16 Unknown Rx [Fioricet] Pantoprazole [Protonix TAB] 20 mg PO QDAY #30 tablet. 06/21/16 Unknown Rx Allergies Allergy/AdvReac Type Severity Reaction Status Date / Time No Known Allergies Allergy Verified 06/12/16 17:09 ED Review of Systems ROS: Stated complaint: POSS POISONING FROM INSECT FOGGERS Other details as noted in HPI Constitutional: no symptoms reported Eyes: denies: as per HPI ENT: denies: as per HPI Respiratory: denies: no symptoms reported Cardiovascular: denies: as per HPI Endocrine: denies: no symptoms reported Gastrointestinal: denies: abdominal pain, nausea, diarrhea Genitourinary: denies: urgency, dysuria, discharge Musculoskeletal: denies: back pain, joint swelling, arthralgia Skin: denies: rash, lesions Neurological: denies: headache, weakness, paresthesias Psychiatric: denies: anxiety, depression Hematological/Lymphatic: denies: easy bleeding, easy bruising ED Past Medical Hx - Past Medical History Previous Medical History?: Yes Hx Congestive Heart Failure: No Hx Diabetes: No Hx Asthma: No Hx COPD: No Hx HIV: No - Surgical History Past Surgical History?: Yes Additional Surgical History: Back, elbow, knee, hysterectomy. back surg 3times - Social History Smoking Status: Never Smoker Substance Use Type: None - Medications Home Medications: Home Medications Medication Instructions Recorded Confirmed Last Taken Type Aspirin EC [Aspirin Enteric Coated 81 mg PO QDAY #30 tablet. 06/20/16 Unknown Rx TAB] Butalb/Acetamin/Caff 50-325-40 1 tab PO Q4H PRN #30 tablet 06/20/16 Unknown Rx [Fioricet] Pantoprazole [Protonix TAB] 20 mg PO QDAY #30 tablet. 06/21/16 Unknown Rx ED Physical Exam - General Limitations: No Limitations General appearance: alert, in no apparent distress - Head Head exam: Present: atraumatic, normocephalic - Eye Eye exam: Present: normal appearance - ENT ENT exam: Present: mucous membranes moist - Neck Neck exam: Present: normal inspection - Respiratory Respiratory exam: Present: normal lung sounds bilaterally. Absent: respiratory distress - Cardiovascular Cardiovascular Exam: Present: regular rate, normal rhythm. Absent: systolic murmur, diastolic murmur, rubs, gallop - GI/Abdominal GI/Abdominal exam: Present: soft, normal bowel sounds - Back Exam Back exam: Present: muscle spasm, other (paraspinal tenderness) - Neurological Exam Neurological exam: Present: oriented X3, CN II-XII intact - Psychiatric Psychiatric exam: Present: normal affect, normal mood - Skin Skin exam: Present: warm, dry, intact, normal color. Absent: rash ED Course Vital Signs 09/22/16 09/23/16 19:50 02:31 Temperature 98.2 F Pulse Rate 57 L 63 Respiratory 20 18 Rate Blood Pressure 152/91 140/78 [Right] O2 Sat by Pulse 100 98 Oximetry - Reevaluation(s) Reevaluation #1: 09/23/16 03:51 Patient states that her pain is more controlled discuss diagnostic findings the patient she agrees to discharge. ED Medical Decision Making - Lab Data Result diagrams: 09/22/16 20:05 09/22/16 20:05 Laboratory Results - last 24 hr 09/22/16 09/22/16 09/22/16 20:00 20:05 20:05 WBC 6.0 RBC 3.73 Hgb 11.3 Hct 33.7 MCV 90 MCH 30 MCHC 34 RDW 12.4 L Plt Count 307 Lymph % (Auto) 41.7 H Cata[place] % (Auto) 6.2 Eos % (Auto) 3.3 Baso % (Auto) 0.3 Lymph # 2.5 Cataño # 0.4 Eos # 0.2 Baso # 0.0 Seg Neutrophils % 48.5 Seg Neutrophils # 2.9 Sodium 143 Potassium 3.8 Chloride 103.1 Carbon Dioxide 27 Anion Gap 17 BUN 4 L Creatinine 0.6 L Estimated GFR > 60 BUN/Creatinine Ratio 6.66 Glucose 82 Calcium 8.8 Urine Color Colorless Urine Turbidity Clear Urine pH 7.0 Ur Specific [place] 1.001 L Urine Protein <15 mg/dl Urine Glucose (UA) Neg Urine Ketones Neg Urine Blood Neg Urine Nitrite Neg Urine Bilirubin Neg Urine Urobilinogen < 2.0 Ur Leukocyte Esterase Neg Urine WBC (Auto) < 1.0 Urine RBC (Auto) < 1.0 - Medical Decision Making Chief medical diagnosis: Muscle spasm Differential medical diagnosis lumbar sacral strain, herniated disc, metabolic abnormality We'll get CT imaging, CBC, CMP, pain control. Critical care attestation.: If time is entered above; I have spent that time in minutes in the direct care of this critically ill patient, excluding procedure time. ED Disposition Clinical Impression: Light headedness Back pain Qualifiers: Back pain location: low back pain Chronicity: acute Back pain laterality: unspecified Sciatica presence: without sciatica Qualified Code(s): M54.5 - Low back pain Fall Qualifiers: Encounter type: initial encounter Qualified Code(s): W19.XXXA - Unspecified fall, initial encounter Disposition: TO HOME OR SELFCARE Is pt being admited?: No Does the pt Need Aspirin: No Condition: Stable Instructions: Fall Prevention (ED) Referrals: PRIMARY CARE, [Primary Care Provider] - 3-5 Days Time of Disposition: 02:06
[2016-09-23 02:33] VITALS: BP 140/78
== END 2016-09-23 02:32 | disposition home or self-care (01) ==
LOC: ED 18:38
DX: M54.5 Low back pain (principal); R42 Dizziness and giddiness; W18.30XA Fall on same level, unspecified, initial encounter; Y93.9 Activity, unspecified; Y92.9 Unspecified place or not applicable; Y99.9 Unspecified external cause status
CPT/HCPCS: 36415; 72125; 72128; 72131; 80048; 81001; 85025

== ENCOUNTER 2017-03-13 19:07 | Emergency (ER) | payer OTHER ==
[2017-03-13] MEDS ORDERED: ASPIRIN PO ONE (19:28)
[2017-03-13 19:53] LABS: Basophils # (Auto) 0.1 K/mm3 (0.0-0.1); Basophils % (Auto) 0.7 % (0.0-1.8); Eosinophils # (Auto) 0.2 K/mm3 (0.0-0.4); Eosinophils % (Auto) 2.8 % (0.0-4.3); Hematocrit 35.6 % (30.3-42.9); Hemoglobin 12.1 gm/dl (10.1-14.3); Lymphocytes # (Auto) 2.6 K/mm3 (1.2-5.4); Lymphocytes % (Auto) 31.8 % (13.4-35.0); Mean Corpuscular HGB Conc 34 % (30-34); Mean Corpuscular Hemoglobin 30 pg (28-32); Mean Corpuscular Volume 88 fl (79-97); Monocytes # (Auto) 0.6 K/mm3 (0.0-0.8); Platelet Count 316 K/mm3 (140-440); Red Blood Count 4.04 M/mm3 (3.65-5.03); Red Cell Distribution Width 12.4 % (13.2-15.2)
[2017-03-13 20:12] LABS: BUN/Creatinine Ratio 23; Blood Urea Nitrogen 14 mg/dL (7-17); Calcium 9.3 mg/dL (8.4-10.2); Hemolysis Index 2
[2017-03-14] MEDS ORDERED: NITROSTAT SL PRN (13:38)
[2017-03-14] MEDS ORDERED: ASPIRIN PO ONE (13:38)
--- NOTE | 2017-03-14 13:39 | Emergency Department Report ---
ED Chest Pain HPI - General Chief Complaint: Chest Pain Stated Complaint: CHEST PAIN,SOB Time Seen by Provider: 03/14/17 12:46 Source: patient Mode of arrival: Ambulatory Limitations: No Limitations - History of Present Illness Initial Comments: This processes a 47-year-old female complaining of chest pain and acute dyspnea that began 2 days ago. Her chest pain feels like an elephant sitting on her chest and feels like pressure that makes it difficult for her to catch her breath. She has had this before, ago. She was seen here in the emergency department all tests were negative and she was sent home. She rates her pain right now at 8 out of 10. She also complains of a frontal and bitemporal headache as well. 6 months MD Complaint: chest pain (2) -: days(s) Onset: during rest Pain Radiation: back (middle of the back of her shoulder blades) Severity scale (0 -10): 8 Quality: heaviness, pressure, other (elephant sitting on her chest) Consistency: constant Improves With: nothing Worsens With: nothing Treatments Prior to Arrival: none - Related Data Home Medications Medication Instructions Recorded Confirmed Last Taken Ibuprofen [Ibuprofen Ib] 800 mg PO Q8H PRN 03/14/17 03/14/17 03/13/17 Allergies Allergy/AdvReac Type Severity Reaction Status Date / Time No Known Allergies Allergy Verified 06/12/16 17:09 Heart Score - HEART Score History: Slightly suspicious EKG: Normal Age: 45-65 Risk factors: No known risk factors Troponin: < normal limit HEART Score: 1 ED Review of Systems ROS: Stated complaint: CHEST PAIN,SOB Other details as noted in HPI Constitutional: denies: chills, fever Eyes: denies: eye pain, eye discharge, vision change ENT: denies: ear pain, throat pain Respiratory: denies: cough, shortness of breath, wheezing Cardiovascular: denies: palpitations Endocrine: no symptoms reported Gastrointestinal: denies: abdominal pain, nausea, diarrhea Genitourinary: denies: urgency, dysuria, discharge Musculoskeletal: denies: back pain, joint swelling, arthralgia Skin: denies: rash, lesions Neurological: headache. denies: weakness, paresthesias Psychiatric: denies: anxiety, depression Hematological/Lymphatic: denies: easy bleeding, easy bruising ED Past Medical Hx - Past Medical History Previous Medical History?: Yes Hx Congestive Heart Failure: No Hx Diabetes: No Hx Headaches / Migraines: Yes Hx Asthma: No Hx COPD: No Hx HIV: No Additional medical history: Chest pain - Surgical History Past Surgical History?: Yes Additional Surgical History: Back, elbow, knee, hysterectomy. back surg 3times - Social History Smoking Status: Never Smoker Substance Use Type: None - Medications Home Medications: Home Medications Medication Instructions Recorded Confirmed Last Taken Type Ibuprofen [Ibuprofen Ib] 800 mg PO Q8H PRN 03/14/17 03/14/17 03/13/17 History ED Physical Exam - General Limitations: No Limitations General appearance: alert - Head Head exam: Present: atraumatic, normocephalic - Eye Eye exam: Present: normal appearance, EOMI - ENT ENT exam: Present: mucous membranes moist, other (dentition) - Neck Neck exam: Present: normal inspection, full ROM - Respiratory Respiratory exam: Present: normal lung sounds bilaterally. Absent: respiratory distress, wheezes, rales - Cardiovascular Cardiovascular Exam: Present: regular rate, normal rhythm, normal heart sounds. Absent: systolic murmur, diastolic murmur, rubs, gallop - GI/Abdominal GI/Abdominal exam: Present: soft, normal bowel sounds. Absent: distended, tenderness, guarding - Rectal Rectal exam: Present: deferred - Extremities Exam Extremities exam: Present: normal inspection, full ROM - Back Exam Back exam: Present: normal inspection, full ROM - Neurological Exam Neurological exam: Present: alert, oriented X3, CN II-XII intact - Psychiatric Psychiatric exam: Present: normal affect, normal mood - Skin Skin exam: Present: warm, dry, intact, normal color. Absent: rash ED Course Vital Signs 03/13/17 03/14/17 19:21 12:45 Temperature 98.7 F Pulse Rate 81 Respiratory 18 16 Rate Blood Pressure 127/81 O2 Sat by Pulse 98 99 Oximetry - Reevaluation(s) Reevaluation #1: 03/14/17 14:47 Dr. MACIEL has evaluated the patient and has decided to send the patient home since she had a negative stress test 6 months ago. I AM NOT IN AGREEMENT WITH DISCHARGING THE PT. WAYNE score - Wayne Score Age > 65: (0) No 3 or more CAD Risk Factors: (0) No 2 or more Angina events in past 24 hrs: (1) Yes Known CAD with more than 50% Stenosis: (0) No Elevated Cardiac Markers: (0) No ST Deviation Greater than 0.5mm: (0) No ED Medical Decision Making - Lab Data Result diagrams: 03/13/17 19:28 03/13/17 19:38 - EKG Data EKG shows normal: sinus rhythm, axis, intervals - EKG Data Interpretation: other (RSR' QRS V1 and V2) Critical care attestation.: If time is entered above; I have spent that time in minutes in the direct care of this critically ill patient, excluding procedure time. ED Disposition Clinical Impression: Incomplete right bundle branch block Chest pain Qualifiers: Chest pain type: unspecified Qualified Code(s): R07.9 - Chest pain, unspecified Headache Qualifiers: Headache type: unspecified Headache chronicity pattern: acute headache Intractability: not intractable Qualified Code(s): R51 - Headache Disposition: 09 OP ADMIT IP TO THIS HOSP Is pt being admited?: Yes Does the pt Need Aspirin: No Condition: Stable Instructions: Chest Pain (ED) Additional Instructions: Please follow up with her doctor in 2 days. Return to the emergency department for any reason. Referrals: PRIMARY CARE, [Primary Care Provider] - 3-5 Days Time of Disposition: 14:46 (DR MACIEL CALLED TO ADMIT THE PT. CASE REVIEWED. PT CARE TURNE BERNARD TO HIM FOR ADMISSION)
[2017-03-14] MEDS ORDERED: NACL 0.9% 1000 ML 1,000 ML IV ONE (13:40)
[2017-03-14] MEDS ORDERED: BENADRYL IV ONE (13:40)
[2017-03-14] MEDS ORDERED: COMPAZINE IV ONE (14:00)
--- NOTE | 2017-03-14 14:49 | Event Note ---
Date: 03/14/17 C/o chest pain 2 days O/e Chest wall tenderness Labs troponin X3 Negative EKG No Acute St T wave changes Stress from 07/06 reviewed Normal EF 69 percent Dx Costochondritis Gerd Meds Meloxicam 15 mg po qd Zantac 150 mg po bid
--- NOTE | 2017-03-14 15:25 | XRay Report ---
AP CHEST: HISTORY: chest pain AP view of the chest demonstrates a normal mediastinal and cardiac contour with clear lungs and normal bony and soft tissue structures. IMPRESSION: Unremarkable AP chest.
[2017-03-14 16:04] VITALS: BP 110/50
== END 2017-03-14 17:13 | disposition admitted as inpatient to this hospital (09) ==
LOC: ED 19:07
DX: I45.19 Other right bundle-branch block (principal); G43.909 Migraine, unspecified, not intractable, without status migrainosus; Z90.710 Acquired absence of both cervix and uterus
CPT/HCPCS: 36415; 71045; 80048; 84484; 85025; 93005; 93010; 96361; 96374; 96375; 99285; J0780; J1200; J7030

== ENCOUNTER 2017-03-15 09:53 | Emergency (ER) | payer SELFPAY ==
[2017-03-15 10:29] VITALS: BP 135/75
--- NOTE | 2017-03-15 11:07 | XRay Report ---
RIGHT KNEE, 3 views: History: Right knee pain and injury. No comparison. There is been previous medial compartment hemiarthroplasty. The hardware appears well applied. 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 No evidence for fracture, bone lesion or bony destruction. A large joint effusion is noted on the lateral image. IMPRESSION: Stable appearance of the hemiarthroplasty. Moderate degenerative changes. Large joint effusion.
== END 2017-03-15 14:50 | disposition left against medical advice (07) ==
LOC: ED 09:53
DX: M25.561 Pain in right knee (principal); Z53.21 Procedure and treatment not carried out due to patient leaving prior to being seen by health care provider